=== PATIENT | female | born 1950 | race Caucasian/White ===

== ENCOUNTER 2017-04-01 14:04 | Outpatient (CLI) | payer OTHER ==
[~2017-04-01 14:04] MED LIST: CELEBREX50 MG PO; Flagyl PO; HUMIRA20 MG/0.4; INTESTINEX1 CA1 PO; LoPRESSOR 100MG TAB PO; NABUMETONE500 MG PO; PROTONIX40 MG PO; RELAFEN500 MG PO; SKELAXIN800 MG PO; SUCRALFATE1 GM/10 ML PO; TOPROL XL50 MG PO; TRAMADOL HCL50 MG PO; ZOFRAN4 MG PO
== END 2017-04-01 14:10 | disposition home or self-care (01) ==
LOC: SONOGRAMA 14:04 → RAD 14:04
DX: M17.0 Bilateral primary osteoarthritis of knee (principal)

== ENCOUNTER → 2017-04-29 | Outpatient (CLI) | payer OTHER | END | disposition home or self-care (01) | LOC: PPH VACUNA 14:44 | DX: Z23 Encounter for immunization (principal) | CPT/HCPCS: 90674; G0008 ==

== ENCOUNTER 2018-09-17 13:13 | Emergency (ER) | payer OTHER ==
[~2018-09-17] VITALS: Ht 160 cm; Wt 83.9 kg
[~2018-09-17 13:13] MED LIST changes: +TIZANIDINE HCL2 MG PO
[2018-09-17] MEDS ORDERED: TOPROL XL100 M1 (13:21)
[2018-09-17] MEDS ORDERED: GABAPENTIN800 MG (13:21)
== END 2018-09-17 14:38 | disposition home or self-care (01) ==
LOC: ER 13:13
DX: N39.0 Urinary tract infection, site not specified (principal)

== ENCOUNTER 2018-11-17 14:04 | Outpatient (CLI) | payer OTHER ==
[~2018-11-17 14:04] MED LIST changes: +GABAPENTIN800 MG; +TOPROL XL100 M1
[2018-11-21] MEDS ORDERED: BACLOFEN10 MG PO (11:09)
== END 2018-11-17 14:07 | disposition home or self-care (01) ==
LOC: RAD 14:04
DX: Z96.653 Presence of artificial knee joint, bilateral (principal)

== ENCOUNTER 2019-07-28 13:18 | Outpatient (CLI) | payer OTHER ==
[~2019-07-28 13:18] MED LIST changes: +BACLOFEN10 MG PO
== END 2019-07-28 13:31 | disposition home or self-care (01) ==
LOC: SONOGRAMA 13:18
DX: N18.3 Chronic kidney disease, stage 3 (moderate) (principal)

== ENCOUNTER → 2019-09-10 | Outpatient (CLI) | payer OTHER | END | disposition home or self-care (01) | LOC: MRI 11:10 | DX: N28.1 Cyst of kidney, acquired (principal) | CPT/HCPCS: 74183; A9575; 74182 ==

== ENCOUNTER 2019-09-25 12:06 | Outpatient (CLI) | payer OTHER | END 2019-09-25 12:13 | disposition home or self-care (01) | LOC: LAB 12:06 → RAD 12:06 → LAB 12:13 | PROVIDERS: ATTEND Specialist/Technologist, Other Nephrology | DX: E03.8 Other specified hypothyroidism (principal); E11.21 Type 2 diabetes mellitus with diabetic nephropathy; D63.1 Anemia in chronic kidney disease; N30.00 Acute cystitis without hematuria; E75.5 Other lipid storage disorders; Z20.828 Contact with and (suspected) exposure to other viral communicable diseases; N18.3 Chronic kidney disease, stage 3 (moderate) ==

== ENCOUNTER 2019-09-28 14:20 | Outpatient (CLI) | payer OTHER | END 2019-09-28 15:00 | disposition home or self-care (01) | LOC: LAB 14:20 | PROVIDERS: ATTEND Specialist/Technologist, Other Nephrology | DX: E11.21 Type 2 diabetes mellitus with diabetic nephropathy (principal); D63.1 Anemia in chronic kidney disease; N30.00 Acute cystitis without hematuria; E03.8 Other specified hypothyroidism; Z20.828 Contact with and (suspected) exposure to other viral communicable diseases ==

== ENCOUNTER 2020-04-11 13:27 | Outpatient (CLI) | payer OTHER | END 2020-04-11 13:35 | disposition home or self-care (01) | LOC: MRI 13:27 | PROVIDERS: ATTEND Physical Medicine & Rehabilitation | DX: M19.011 Primary osteoarthritis, right shoulder (principal); M25.511 Pain in right shoulder | CPT/HCPCS: 73221 ==

== ENCOUNTER 2020-06-29 14:08 | Outpatient (CLI) | payer OTHER | END 2020-06-29 14:12 | disposition home or self-care (01) | LOC: RAD 14:08 | DX: R07.89 Other chest pain (principal); R06.02 Shortness of breath ==

== ENCOUNTER 2021-01-06 16:06 | Emergency (ER) | payer OTHER ==
[~2021-01-06] VITALS: Ht 160 cm; Wt 89.8 kg
== END 2021-01-06 18:34 | disposition home or self-care (01) ==
LOC: ER 16:06
DX: R53.81 Other malaise (principal); Z11.52 Encounter for screening for COVID-19

== ENCOUNTER → 2021-01-11 13:51 | Outpatient (CLI) | payer OTHER | END | disposition home or self-care (01) | LOC: LAB 13:51 | DX: D89.1 Cryoglobulinemia (principal); Z12.9 Encounter for screening for malignant neoplasm, site unspecified; G60.9 Hereditary and idiopathic neuropathy, unspecified; E03.8 Other specified hypothyroidism; E53.8 Deficiency of other specified B group vitamins; E11.9 Type 2 diabetes mellitus without complications; N18.9 Chronic kidney disease, unspecified; I10 Essential (primary) hypertension; Z11.4 Encounter for screening for human immunodeficiency virus [HIV]; E55.9 Vitamin D deficiency, unspecified; I50.89 Other heart failure ==

== ENCOUNTER 2021-07-31 10:22 | Outpatient (CLI) | payer OTHER | END 2021-07-31 10:42 | disposition home or self-care (01) | LOC: MRI 10:22 | DX: N18.31 Chronic kidney disease, stage 3a (principal); M51.36 Other intervertebral disc degeneration, lumbar region; G45.9 Transient cerebral ischemic attack, unspecified | CPT/HCPCS: 70551; 72148 ==

== ENCOUNTER 2022-10-23 13:08 | Outpatient (CLI) | payer OTHER | END 2022-10-23 13:13 | disposition home or self-care (01) | LOC: RAD 13:08 | PROVIDERS: ATTEND Internal Medicine Rheumatology | DX: R06.02 Shortness of breath (principal) ==

== ENCOUNTER 2023-04-17 10:47 | Outpatient (CLI) | payer OTHER ==
[~2023-04-17 10:47] MED LIST changes: +CELEBREX200MG PO; +TIZANIDINE HCL2 M1 PO
== END 2023-04-17 10:53 | disposition home or self-care (01) ==
LOC: SONOGRAMA 10:47
DX: M75.92 Shoulder lesion, unspecified, left shoulder (principal)

== ENCOUNTER 2025-02-10 16:22 | Emergency (ER) | payer OTHER ==
[~2025-02-10] VITALS: Ht 165.9 cm; Wt 83.9 kg
[~2025-02-10 16:22] MED LIST changes: +VOLTAREN ARTHRI20 GM TOP
[2025-02-10] MEDS ORDERED: METOPROLOL SUCCINATE 25 MG TAB.SR.24H PO ONE (18:30)
[2025-02-10] MEDS ORDERED: 0.9 % SODIUM CHLORIDE 1,000 ML IV ONE (18:30)
[2025-02-10] MEDS ORDERED: FAMOtidine 10 MG/ML (4ML VIAL) IV ONE (18:30)
[2025-02-10 19:10] LABS: BASO % 0.2 % (0.1-1.2); EOS # 0.06 (0.04-0.54); EOS % 0.7 % (0.7-7.0); LYMPH # 0.92 (1.18-3.74); LYMPH % 10.0 % (19.3-53.1); MEAN PLATELET VOLUME 10.60 fl (9.4-12.4); MONO # 0.38 (0.24-0.82); MONO % 4.1 % (4.7-12.5); NEUT # 7.73 (1.56-6.13); NEUT % 84.2 % (34.0-71.1); RED CELL DISTRIBUTION WIDTH 14.7 % (11.6-14.4)
[2025-02-10 19:28] LABS: INR 1.09
[2025-02-10] MEDS ORDERED: METOPROLOL SUCCINATE 100 MG TAB.SR.24H PO SCH (20:11)
[2025-02-10] MEDS ORDERED: APIXABAN 2.5 MG TABLET PO SCH (20:11)
[2025-02-10] MEDS ORDERED: LEVALBUTEROL HCL 1.25 MG/3 ML SOLUTION IH SCH (20:11)
[2025-02-10 20:14] LABS: COVID-19 AG NEGATIVE (NEGATIVE)
[2025-02-10] MEDS ORDERED: NITROGLYCERIN IN 5 % DEXTROSE 250 ML IV SCH (20:34)
[2025-02-10] MEDS ORDERED: ASPIRIN 325 MG TABLET PO ONE (20:45)
[2025-02-10] MEDS ORDERED: TICAGRELOR 90 MG TABLET PO ONE (20:45)
[2025-02-10 21:06] LABS: ALT/SGPT 24.0 U/L (12-78); AST/SGOT 14.0 U/L (15-37); BILIRUBIN TOTAL 0.27 mg/dL (0.3-1.2); BUN CREA RATIO 26.0 (7.0-25.0); CREATININE SERUM 2.0 mg/dL (0.55-1.02); GFR 24.42; GLOBULINA 4.0 G/DL (2.4-3.5); GLUCOSE FASTING 98.0 mg/dL (65-100); OSMOLALITY SERUM 297.0 MOSM/KG (275-295)
[2025-02-10 21:27] LABS: URINE APPEARANCE Clear; URINE BILIRRUBIN Negative (NEGATIVE); URINE BLOOD Negative; URINE COLOR Yellow; URINE GLUCOSE Negative (NEGATIVE); URINE KETONE Negative (NEGATIVE); URINE LEUKOCYTE Small; URINE NITRATE Negative; URINE PROTEIN Trace (NEGATIVE); URINE UROBILINOGEN 0.2 E.U./dl
[2025-02-10 21:31] LABS: URINE BACTERIA 161.9 uL (0.0-1933); URINE EPITHELIAL CELLS 16.1 uL (0.0-38.8); URINE WBC 64.8 uL (0.0-23.2)
[2025-02-10 21:41] LABS: URINE CAST 1.02 uL (0.0-1.40); URINE RBC 0.8 uL (0.0-20.8)
== END 2025-02-10 22:16 | disposition designated cancer center or children's hospital (05) ==
LOC: ER 16:22
PROVIDERS: General Practice
DX: R79.89 Other specified abnormal findings of blood chemistry (principal); R53.1 Weakness; R07.89 Other chest pain; I10 Essential (primary) hypertension; Z20.822 Contact with and (suspected) exposure to COVID-19
CPT/HCPCS: 36415; 51702; 71045; 93005; 93041; 96365; 96366; 99285; J3490 ×2; J7030